=== PATIENT | female | born 1945 | race Caucasian/White ===

== ENCOUNTER 2018-09-06 19:25 | Emergency (ER) | payer MEDICARE, SELFPAY ==
[2018-09-06 20:01] VITALS: BP 143/83; PULSE 57; RESP 18; TEMP 36.6; O2SAT 96
[2018-09-06 20:04] VITALS: BP 143/83; PULSE 57; RESP 18; TEMP 36.6; O2SAT 96
--- NOTE | 2018-09-06 20:13 | W.ED.GENAD ---
Discharge Plan Disposition Patient Disposition: HOME Condition: Stable Discharge Details Chief Complaint: RespSymp Clinical Impression: Cough Primary Care Provider: Malinda,Local ED Provider: Alfonso Jay Home Meds and New Rx's Prescriptions: New levofloxacin 750 mg tablet 750 mg PO DAILY Qty: 5 RF: 0 ondansetron 4 mg tablet,disintegrating 4 mg PO TID PRN (Reason: nausea and vomiting) 5 Days Qty: 30 RF: 0 No Action alendronate 70 MG tablet 70 mg PO Q7D@0700 RF: 0 simvastatin 10 MG tablet 10 mg PO HS RF: 0 levothyroxine 75 MCG tablet 75 mcg PO DAILY AM RF: 0 letrozole 2.5 MG tablet 2.5 mg PO DAILY AM RF: 0 escitalopram oxalate [Lexapro] 10 MG tablet 10 mg PO DAILY AM RF: 0 Discharge Instructions Instructions: Acute Cough (ED) Additional Instructions: I have placed you on our follow up list to get established with a primary care provider if you feel you are becoming more ill or having worsening shortness of breath return to the emergency department Medical Decision Making 72 yo female with hx of hld, hypothryoidism, who comes in with cc of 1 week of sore throat, cough and nausea. Denies chest pain, recent travel, rashes. She is speaking in full sentences on exam, is afebrile and has clear lungs throughout on exam. Has clear rhinorrhea, normal oropharynx. Suspect viral uri given multiple symptoms, doubt sepsis/pna given well appearance but will obtain xray elfego polly for possible infiltrate. Will also test for influenza. Could be bronchitis given cough. NO murmurs or stigmata of endocarditis pt remains stable, vitals stable, flu test negative and xray negative but on repeat lung exam does have small area of rhonchi in the left lower lobe. could still be bronchitis but will tx for possible early cap. Will have her get established with pcp tatiana as she is new to the area and return precautions given Differential Diagnosis uri, influenza, pna Imaging Data Radiologic Study: Attestation: I personally reviewed and interpreted this imaging study as follows: Imaging: X-Ray Radiologist's impression: no acute abnormality Lab Data Lab results reviewed: Yes I reviewed the patient's lab results. HPI General Mode of arrival: ambulatory. Date/Time Provider Initiated Documentation: 09/06/18 19:57. Limitations to Documentation: no limitations. Information obtained by: patient. History of Present Illness 72 year old F presents to the emergency department with the chief complaint of cough, described as moderate, Patient started experiencing this week(s) (1) and it has been intermittent. No relieving factors improve symptom(s), No exacerbating factors reported . Patient notes other (nausea, sore throat). Patient did receive the following treatments prior to arrival, none Related Data Home Medications Medication Instructions Recorded Confirmed alendronate 70 mg PO Q7D@0700 09/10/16 09/10/16 escitalopram oxalate [Lexapro] 10 mg PO DAILY AM 09/10/16 09/10/16 letrozole 2.5 mg PO DAILY AM 09/10/16 09/10/16 levothyroxine 75 mcg PO DAILY AM 09/10/16 09/10/16 simvastatin 10 mg PO HS 09/10/16 09/10/16 levofloxacin 750 mg PO DAILY #5 tab 09/06/18 ondansetron 4 mg PO TID PRN 5 Days #30 tab 09/06/18 Previous Rx's Medication Instructions Recorded levofloxacin 750 mg PO DAILY #5 tab 09/06/18 ondansetron 4 mg PO TID PRN 5 Days #30 tab 09/06/18 Allergies Allergy/AdvReac Type Severity Reaction Status Date / Time house dust Allergy Mild Unverified 09/10/16 18:30 General Stated Complaint: RespSymp SHERRI: 3 Review of Systems Review of Systems All systems reviewed & are unremarkable except as noted in HPI and below Constitutional Denies fever(s) Cardiovascular Denies chest pain Gastrointestinal Denies abdominal pain and Denies vomiting Integumentary/Breasts Denies rash [facility] Social History Smoking/Tobacco Use Status: Never Substance use type: does not use Do you feel safe at home: Yes Do you feel safe in your relationship?: Yes Exam Const General: no acute distress Orientation: alert HENMT Head: normal to inspection Ears: external ears normal General nose exam: external nose normal Mouth: moist mucous membranes Eyes General: appearance normal, both eyes and all related structures Neck Neck: normal visual inspection Resp Effort & Inspection: normal respiratory effort and able to speak in complete sentences Cardio Rate: regular rate Skin General skin exam: no rashes or lesions noted Neuro General: alert and oriented x3 Extrem General: normal to inspection Psych Mental Status: mental status grossly normal Course Vital Signs Temperature 36.6 C 09/06/18 20:01 Pulse 57 L 09/06/18 20:01 Respiratory Rate 18 09/06/18 20:01 Blood Pressure 143/83 H 09/06/18 20:01 Pulse Oximetry 96 09/06/18 20:01 Temperature 36.6 C 09/06/18 20:04 Temperature Source Tympanic 09/06/18 20:04 Pulse 57 L 09/06/18 20:04 Respiratory Rate 18 09/06/18 20:04 Respiratory Effort Non-Labored 09/06/18 20:05 Blood Pressure 143/83 H 09/06/18 20:04 Pulse Oximetry 96 09/06/18 20:04 Oxygen Delivery Method Room Air 09/06/18 20:04 Oxygen Flow Rate 0 09/06/18 20:04
--- NOTE | 2018-09-06 20:16 | ED.GENADUL_ITS ---
Discharge Plan Disposition Patient Disposition: HOME Condition: Stable Discharge Details Chief Complaint: RespSymp Clinical Impression: Cough Primary Care Provider: Malinda,Local ED Provider: Alfonso Jay Home Meds and New Rx's Prescriptions: New levofloxacin 750 mg tablet 750 mg PO DAILY Qty: 5 RF: 0 ondansetron 4 mg tablet,disintegrating 4 mg PO TID PRN (Reason: nausea and vomiting) 5 Days Qty: 30 RF: 0 No Action alendronate 70 MG tablet 70 mg PO Q7D@0700 RF: 0 simvastatin 10 MG tablet 10 mg PO HS RF: 0 levothyroxine 75 MCG tablet 75 mcg PO DAILY AM RF: 0 letrozole 2.5 MG tablet 2.5 mg PO DAILY AM RF: 0 escitalopram oxalate [Lexapro] 10 MG tablet 10 mg PO DAILY AM RF: 0 Discharge Instructions Instructions: Acute Cough (ED) Additional Instructions: I have placed you on our follow up list to get established with a primary care provider if you feel you are becoming more ill or having worsening shortness of breath return to the emergency department Medical Decision Making 72 yo female with hx of hld, hypothryoidism, who comes in with cc of 1 week of sore throat, cough and nausea. Denies chest pain, recent travel, rashes. She is speaking in full sentences on exam, is afebrile and has clear lungs throughout on exam. Has clear rhinorrhea, normal oropharynx. Suspect viral uri given multiple symptoms, doubt sepsis/pna given well appearance but will obtain xray elfego polly for possible infiltrate. Will also test for influenza. Could be bronchitis given cough. NO murmurs or stigmata of endocarditis pt remains stable, vitals stable, flu test negative and xray negative but on repeat lung exam does have small area of rhonchi in the left lower lobe. could still be bronchitis but will tx for possible early cap. Will have her get established with pcp tatiana as she is new to the area and return precautions given Differential Diagnosis uri, influenza, pna Imaging Data Radiologic Study: Attestation: I personally reviewed and interpreted this imaging study as follows: Imaging: X-Ray Radiologist's impression: no acute abnormality Lab Data Lab results reviewed: Yes I reviewed the patient's lab results. HPI General Mode of arrival: ambulatory . Date/Time Provider Initiated Documentation: 09/06/18 19:57 . Limitations to Documentation: no limitations . Information obtained by: patient . History of Present Illness 72 year old F presents to the emergency department with the chief complaint of cough, described as moderate, Patient started experiencing this week(s) (1) and it has been intermittent. No relieving factors improve symptom(s), No exacerbating factors reported . Patient notes other (nausea, sore throat). Patient did receive the following treatments prior to arrival, none Related Data Home Medications Medication Instructions Recorded Confirmed alendronate 70 mg PO Q7D@0700 09/10/16 09/10/16 escitalopram oxalate [Lexapro] 10 mg PO DAILY AM 09/10/16 09/10/16 letrozole 2.5 mg PO DAILY AM 09/10/16 09/10/16 levothyroxine 75 mcg PO DAILY AM 09/10/16 09/10/16 simvastatin 10 mg PO HS 09/10/16 09/10/16 levofloxacin 750 mg PO DAILY #5 tab 09/06/18 ondansetron 4 mg PO TID PRN 5 Days #30 tab 09/06/18 Previous Rx's Medication Instructions Recorded levofloxacin 750 mg PO DAILY #5 tab 09/06/18 ondansetron 4 mg PO TID PRN 5 Days #30 tab 09/06/18 Allergies Allergy/AdvReac Type Severity Reaction Status Date / Time house dust Allergy Mild Unverified 09/10/16 18:30 General Stated Complaint: RespSymp SHERRI: 3 Review of Systems Review of Systems All systems reviewed & are unremarkable except as noted in HPI and below Constitutional Denies fever(s) Cardiovascular Denies chest pain Gastrointestinal Denies abdominal pain and Denies vomiting Integumentary/Breasts Denies rash [facility] Social History Smoking/Tobacco Use Status: Never Substance use type: does not use Do you feel safe at home: Yes Do you feel safe in your relationship?: Yes Exam Const General: no acute distress Orientation: alert HENMT Head: normal to inspection Ears: external ears normal General nose exam: external nose normal Mouth: moist mucous membranes Eyes General: appearance normal, both eyes and all related structures Neck Neck: normal visual inspection Resp Effort & Inspection: normal respiratory effort and able to speak in complete sentences Cardio Rate: regular rate Skin General skin exam: no rashes or lesions noted Neuro General: alert and oriented x3 Extrem General: normal to inspection Psych Mental Status: mental status grossly normal Course Vital Signs Temperature 36.6 C 09/06/18 20:01 Pulse 57 L 09/06/18 20:01 Respiratory Rate 18 09/06/18 20:01 Blood Pressure 143/83 H 09/06/18 20:01 Pulse Oximetry 96 09/06/18 20:01 Temperature 36.6 C 09/06/18 20:04 Temperature Source Tympanic 09/06/18 20:04 Pulse 57 L 09/06/18 20:04 Respiratory Rate 18 09/06/18 20:04 Respiratory Effort Non-Labored 09/06/18 20:05 Blood Pressure 143/83 H 09/06/18 20:04 Pulse Oximetry 96 09/06/18 20:04 Oxygen Delivery Method Room Air 09/06/18 20:04 Oxygen Flow Rate 0 09/06/18 20:04
--- NOTE | 2018-09-06 20:30 | DI.RAD_ITS ---
SYMPTOM/DIAGNOSIS: COUGH PA AND LATERAL CHEST: 09/07/18 Previous left mastectomy and axillary dissection noted. Heart is not enlarged. Lungs are clear and well expanded. No pleural effusion seen. CONCLUSION: No evidence of acute disease.
--- NOTE | 2018-09-06 20:55 | DI.VRAD_ITS ---
EXAM: XR Chest, 2 Views EXAM DATE/TIME: 09/06/2018 8:14 PM CLINICAL HISTORY: 72 years old, female; Signs and symptoms; Cough TECHNIQUE: Imaging protocol: XR of the chest, 2 views. COMPARISON: No relevant prior studies available. FINDINGS: Lungs: The lungs are clear. Pleural space: No pleural effusion or pneumothorax. Heart/Mediastinum: The cardiomediastinal silhouette and pulmonary vessels are unremarkable. Bones/joints: No acute bone or joint abnormality. Soft tissues: Surgical clips superimposed over the left axilla. IMPRESSION: No acute abnormality. Dictated and Authenticated by: Mahamed Moss MD. Ordering:VALERIA Hamilton MD
[2018-09-06] MEDS: Ondansetron O.D.T. 4 MG TABEF PO (21:05)
[2018-09-06] MEDS: levoFLOXacin 500 MG, levoFLOXacin 250 MG 750 MG PO (21:05)
[2018-09-06 21:15] VITALS: BP 116/73; PULSE 52; RESP 20; TEMP 36.6; O2SAT 96
--- NOTE | 2018-09-07 10:09 | NUR.NOTE ---
Nursing Note: Faxed referral to Sandra Hylton NP for follow up. She is on for telephone call. Maria A Ospina.
== END 2018-09-06 21:15 | disposition home or self-care (01) ==
PROVIDERS: Emergency Provider Emergency Medicine
DX: R05 Cough (principal); J02.9 Acute pharyngitis, unspecified; R11.0 Nausea
CPT/HCPCS: 87449; 99283; 71046